=== PATIENT | male | born 1945 | race Caucasian/White ===

== ENCOUNTER 2016-06-25 13:48 | Inpatient (IN) | payer BC, MEDICARE ==
[~2016-06-25] VITALS: Ht 182.9 cm; Wt 110.4 kg
[2016-06-25] MEDS ORDERED: SODIUM CHLORIDE 0.9% 250 ML IV ONE (14:17)
[2016-06-25] MEDS ORDERED: SODIUM CHLORIDE 0.9% 1,000 ML IV STA (14:17)
[2016-06-25] MEDS ORDERED: SODIUM CHLORIDE 0.9% 1,000 ML IV ONE ×2 (14:17)
[2016-06-25] MEDS ORDERED: FURO40TA4 PO (14:27)
[2016-06-25] MEDS ORDERED: METO25TA62 PO (14:27)
[2016-06-25] MEDS ORDERED: ASPI-498 OR (14:27)
[2016-06-25] MEDS ORDERED: TOFA5TAB PO (14:27)
[2016-06-25] MEDS ORDERED: APIX5TAB PO (14:27)
[2016-06-25] MEDS ORDERED: VENL150C PO (14:27)
[2016-06-25] MEDS ORDERED: PRE5T PO (14:27)
[2016-06-25] MEDS ORDERED: MAGN400T21 PO (14:27)
[2016-06-25] MEDS ORDERED: AMI200T PO (14:27)
[2016-06-25] MEDS ORDERED: LOSA25TA9 PO (14:27)
[2016-06-25] MEDS ORDERED: ATOR1TAB PO (14:27)
[2016-06-25] MEDS ORDERED: ACETAMINOPHEN 325 MG TAB PO PRN (14:30)
[2016-06-25 14:45] LABS: DEFINITIVE VIEW TRANSMISSION; Hematocrit 29.8 % (41.0-53.0); Hemoglobin 10.1 g/dL (13.5-17.5); Mean Corpuscular Hemoglobin 31.5 pg (28.0-32.0); Mean Corpuscular Hgb Conc. 33.8 g/dL (32.0-36.0); Mean Corpuscular Volume 93.1 fL (80.0-100.0); Mean Platelet Volume 6.7 fL (7.4-10.4); Platelet Count (auto) 391 10^3/uL (140-450); Red Cell Distribution Width 19.8 % (11.6-16.0); SUSPECT VIEW TRANSMISSION; White Blood Cell 12.8 10^3/uL (4.4-10.8)
[2016-06-25 14:48] LABS: Metamyelocytes % 0; Myelocytes % 0; Promyelocytes % 0; Reactive Lymphocytes 0
[2016-06-25] MEDS ORDERED: cefTRIAXone 1GM/50ML D5W 50 ML IV SCH (15:00)
[2016-06-25 15:17] LABS: Partial Thromboplastin Time 29.7 sec (22.64-33.71)
[2016-06-25 15:23] LABS: Lactic Acid w/Reflex 2.1 mmol/L (0.4-2.0)
[2016-06-25 15:25] LABS: INR 1.19 (0.9-1.15); Prothrombin Time 12.9 sec (9.37-12.3)
[2016-06-25 15:34] LABS: BUN/Creatinine Ratio 14.1; Potassium 3.9 mmol/L (3.5-5.1)
[2016-06-25 15:35] LABS: Albumin 3.4 g/dL (3.4-5.0); Bilirubin, Total 1.5 mg/dL (0.2-1.0); Calcium 8.6 mg/dL (8.5-10.1); Magnesium 2.1 mg/dL (1.6-2.6); Total Protein 8.2 g/dL (6.4-8.2)
[2016-06-25 15:36] LABS: REFLEX LACTIC ACID YES OR NO YES
[2016-06-25] MEDS ORDERED: AZITHROMYCIN 500MG/D5W 250ML 250 ML IV ONE (15:45)
[2016-06-25 15:59] LABS: Anisocytosis Slight; Ovalocytes FEW; Platelet Estimate Adequate
[2016-06-25] MEDS ORDERED: metroNIDAZOLE 500MG/100ML 100 ML IV ONE (16:00)
[2016-06-25] MEDS ORDERED: FUROSEMIDE 40 MG/4 ML VIAL IV ONE (16:15)
[2016-06-25] MEDS ORDERED: ENOXAPARIN SOD 100 MG/1 ML SYRINGE SC ONE (16:15)
[2016-06-25 16:24] LABS: Fibrinogen 546.1 mg/dL (177-375)
[2016-06-25] MEDS ORDERED: ONDANSETRON HCL 4 MG/2 ML VIAL IV PRN (16:45)
[2016-06-25] MEDS ORDERED: NITROGLYCERIN 0.4 MG SL TAB SL PRN (16:45)
[2016-06-25] MEDS ORDERED: HYDROcodone-ACET 5/325MG TAB PO PRN (16:45)
[2016-06-25] MEDS ORDERED: MORPHINE SULF INJ 2 MG/ML SYRINGE 1ML IV PRN ×2 (16:45)
[2016-06-25 16:49] LABS: B-Type Natriuretic Peptide 3201.63 pg/mL (0-100); Temperature: 24.3 C (20.0-25.0)
[2016-06-25] MEDS ORDERED: ACETAMINOPHEN 500 MG TAB PO PRN (17:00)
[2016-06-25] MEDS ORDERED: MAGN400T23 PO (18:55)
[2016-06-25] MEDS ORDERED: SULF500T37 PO (18:55)
[2016-06-25 20:00] VITALS: BP 101/60
[2016-06-25 20:02] LABS: Urine Bilirubin Negative (Negative); Urine Blood TRACE /uL (Negative); Urine Color Yellow (Yellow); Urine Glucose Normal (Normal); Urine Ketone Negative (Negative); Urine Nitrite Negative (Negative); Urine RBC 2 /hpf (0 - 3); Urine Urobilinogen Normal (Negative); Urine pH 5.5 (5.0-8.0)
[2016-06-25] MEDS: SULFASALAZINE 500 MG TAB PO SCH (21:59)
[2016-06-25] MEDS: CLINDAMYCIN 600MG IV 50 ML IV SCH (21:59)
[2016-06-25 22:00] VITALS: BP 102/39
[2016-06-25] MEDS ORDERED: metroNIDAZOLE 500MG/100ML 100 ML IV SCH (22:00)
[2016-06-25] MEDS: APIXABAN 5 MG TAB PO SCH (22:00)
[2016-06-26 05:00] VITALS: BP 109/64
[2016-06-26] MEDS: CLINDAMYCIN 600MG IV 50 ML IV SCH (05:57)
[2016-06-26 06:56] LABS: Basophils # (auto) 0 uL; DEFINITIVE VIEW TRANSMISSION; Eosinophils # (auto) 0 uL; Eosinophils % (auto) 0.1 % (0.0-7.0); Hemoglobin 9.6 g/dL (13.5-17.5); Lymphocytes # (auto) 0.3 uL; Mean Corpuscular Hemoglobin 31.3 pg (28.0-32.0); Mean Corpuscular Hgb Conc. 33.3 g/dL (32.0-36.0); Mean Corpuscular Volume 93.9 fL (80.0-100.0); Monocytes # (auto) 0.6 uL; Monocytes % (auto) 4.8 % (0.0-12.0); Neutrophils # (auto) 10.8 uL; Neutrophils % (auto) 92.1 % (37.0-80.0); Platelet Count (auto) 308 10^3/uL (140-450); Red Cell Distribution Width 19.1 % (11.6-16.0); White Blood Cell 11.7 10^3/uL (4.4-10.8)
[2016-06-26] MEDS ORDERED: VANCOMYCIN PER PHARMACY 0 MG IV SCH (07:00)
[2016-06-26 07:21] LABS: Potassium 3.8 mmol/L (3.5-5.1)
[2016-06-26 07:27] LABS: Albumin 2.9 g/dL (3.4-5.0); Calcium 8.2 mg/dL (8.5-10.1)
[2016-06-26 07:29] LABS: Bilirubin, Total 1.1 mg/dL (0.2-1.0); Total Protein 7.3 g/dL (6.4-8.2)
[2016-06-26 08:00] VITALS: BP 107/65
[2016-06-26] MEDS ORDERED: cefTRIAXone 1GM/50ML D5W 50 ML IV SCH (09:00)
[2016-06-26] MEDS: VANCOMYCIN 1GM/250ML D5W 250 ML IV SCH ×2 (09:43→17:19)
[2016-06-26] MEDS: APIXABAN 5 MG TAB PO SCH (09:43)
[2016-06-26] MEDS: SULFASALAZINE 500 MG TAB PO SCH (09:43)
[2016-06-26] MEDS ORDERED: AMIODARONE HCL 200 MG TAB PO SCH (10:00)
[2016-06-26] MEDS ORDERED: VANCOMYCIN 1,500 MG in D5W 5% 250 ML IV SCH (10:00)
[2016-06-26] MEDS ORDERED: AZITHROMYCIN 500MG/D5W 250ML 250 ML IV SCH (12:00)
[2016-06-26 12:50] VITALS: BP 95/48
[2016-06-26 13:00] VITALS: BP 98/45
[2016-06-26] MEDS ORDERED: ONDANSETRON HCL 4 MG/2 ML VIAL IV PRN (13:00)
[2016-06-26 17:00] VITALS: BP 98/62
[2016-06-26] MEDS ORDERED: ALBUTEROL SULF 2.5 MG/0.5ML(0.5%) NEB SOLN NEB PRN (20:15)
[2016-06-26] MEDS ORDERED: IPRATROPIUM BROM 0.5 MG/2.5ML INH SOL NEB PRN (20:15)
== END 2016-06-26 21:55 | disposition short-term general hospital (02) | DRG 871 ==
LOC: EDUNIT# 13:48 → EDBD 13:48 → ER 13:51 → TELE 13:52 → TELE-WESTW 18:20
PROVIDERS: ADMIT Internal Medicine; ATTEND Family Medicine
PROC: 5A09357 Assistance with Respiratory Ventilation, Less than 24 Consecutive Hours, Continuous Positive Airway Pressure (ICD-10-PCS; principal; 2016-06-25)
DX: A41.01 Sepsis due to Methicillin susceptible Staphylococcus aureus (principal); J18.9 Pneumonia, unspecified organism; I13.0 Hypertensive heart and chronic kidney disease with heart failure and stage 1 through stage 4 chronic kidney disease, or unspecified chronic kidney disease; J44.0 Chronic obstructive pulmonary disease with (acute) lower respiratory infection; L02.211 Cutaneous abscess of abdominal wall; I50.22 Chronic systolic (congestive) heart failure; E78.5 Hyperlipidemia, unspecified; I48.91 Unspecified atrial fibrillation; M06.9 Rheumatoid arthritis, unspecified; N18.3 Chronic kidney disease, stage 3 (moderate); Z95.810 Presence of automatic (implantable) cardiac defibrillator; Z79.01 Long term (current) use of anticoagulants; Z79.899 Other long term (current) drug therapy; Z82.5 Family history of asthma and other chronic lower respiratory diseases; Z80.3 Family history of malignant neoplasm of breast; Z80.42 Family history of malignant neoplasm of prostate; Z80.8 Family history of malignant neoplasm of other organs or systems; Z81.8 Family history of other mental and behavioral disorders; Z82.0 Family history of epilepsy and other diseases of the nervous system; Z82.3 Family history of stroke; Z82.49 Family history of ischemic heart disease and other diseases of the circulatory system; Z83.3 Family history of diabetes mellitus; Z82.62 Family history of osteoporosis; Z82.61 Family history of arthritis
CPT/HCPCS: 36415; 36600; 71010; 74176; 80053; 81001; 82553; 82805; 83605; 83735; 83880; 84484; 85007; 85025; 85027; 85379; 85384; 85610; 85730; 87040; 87077; 87086; 87186; 93005; 93306; 94660; 96361; 96365; 96367; 96372; 96375; J0696; J2405; J3490; J7060

== ENCOUNTER 2022-10-19 19:46 | Inpatient (IN) | payer BC, MEDICARE, OTHER ==
[~2022-10-19] VITALS: Ht 177.8 cm; Wt 73.4 kg
[~2022-10-19 19:46] MED LIST: AMIO200T13 PO; APIX5TAB PO; ASPI-498 OR; ATOR-47 PO; FURO40TA4 PO; MAGN400T23 PO; METO25TA93 PO; PRE5T PO; SULF500T37 PO; TOFA5TAB PO; VENL150C3 PO
[2022-10-19 20:17] LABS: Basophils # (auto) 0.1 10 ^3/uL (0-0.2); Basophils % (auto) 1.3 % (0.0-2.0); Eosinophils # (auto) 0.1 10 ^3/uL (0-0.8); Eosinophils % (auto) 1.2 % (0.0-7.0); Hematocrit 38.9 % (41.0-53.0); Hemoglobin 13.1 g/dL (13.5-17.5); Lymphocytes # (auto) 1.6 10 ^3/uL (0.4-5.4); Lymphocytes % (auto) 15.2 % (10.0-50.0); Mean Corpuscular Hemoglobin 30.5 pg (28.0-32.0); Mean Corpuscular Hgb Conc. 33.8 g/dL (32.0-36.0); Mean Corpuscular Volume 90.4 fL (80.0-100.0); Monocytes # (auto) 1.2 10 ^3/uL (0-1.3); Monocytes % (auto) 11.5 % (0.0-12.0); Neutrophils # (auto) 7.3 10 ^3/uL (1.6-8.6); Neutrophils % (auto) 70.8 % (37.0-80.0); Nucleated Red Blood Cells % 0.1 %; Red Cell Distribution Width 16.2 % (11.8-14.3); White Blood Cell 10.2 10^3/uL (4.4-10.8)
[2022-10-19] MEDS ORDERED: fentaNYL CITRATE 100 MCG/2 ML VL IV ONE (20:30)
[2022-10-19] MEDS ORDERED: ONDANSETRON HCL 4 MG/2 ML VIAL IV ONE (20:30)
[2022-10-19 20:32] LABS: INR 1.16 (0.9-1.15); Partial Thromboplastin Time 28.7 SEC (24.5-34.5); Prothrombin Time 12.1 sec (9.3-11.8)
[2022-10-19 20:40] VITALS: O2SAT 94
[2022-10-19 20:43] LABS: Alanine Aminotransferase 64 U/L (7-40); Albumin 3.7 g/dL (3.2-4.8); Alkaline Phosphatase 69 U/L (46-116); Anion Gap 9.3 (5-15); Aspartate Aminotransferase 52 U/L (13-40); BUN/Creatinine Ratio 21.8 (10.0-20.0); Blood Urea Nitrogen 22 mg/dL (9-23); Calcium 9.2 mg/dL (8.5-10.1); Carbon Dioxide 23.7 mmol/L (20-30); Chloride 102 mmol/L (98-107); Glucose 126 mg/dL (74-106); Magnesium 1.7 mg/dL (1.6-2.6); Potassium 4.2 mmol/L (3.5-5.1); Sodium 135 mmol/L (136-145)
[2022-10-19 20:44] LABS: Bilirubin, Total 1.4 mg/dL (0.2-1.0); Total Protein 7.1 g/dL (5.7-8.2)
[2022-10-19] MEDS ORDERED: SODIUM CHLORIDE 0.9% 1,000 ML IV ONE (20:45)
[2022-10-19] MEDS ORDERED: IPRATROPIUM BROM 0.5 MG/2.5ML INH SOL NEB ONE (21:45)
[2022-10-19] MEDS ORDERED: DexAMETHasone SOD PHOS 10MG/1ML VIAL INJ IV ONE (21:45)
[2022-10-19] MEDS ORDERED: LACTATED RINGER'S 1,000 ML IV ONE (21:45)
[2022-10-19] MEDS ORDERED: AZITHROMYCIN 500MG/ 250ML 250 ML IV ONE (21:45)
[2022-10-19] MEDS ORDERED: ALBUTEROL SULF 2.5 MG/0.5ML(0.5%) NEB SOLN NEB ONE (21:45)
[2022-10-19] MEDS ORDERED: IBUPROFEN 600 MG TAB PO PRN (22:30)
[2022-10-19] MEDS ORDERED: IPRATROPIUM BROM 0.5 MG/2.5ML INH SOL NEB PRN (22:30)
[2022-10-19] MEDS ORDERED: ALBUTEROL SULF 2.5 MG/0.5ML(0.5%) NEB SOLN NEB PRN (22:30)
[2022-10-19] MEDS ORDERED: MORPHINE SULFATE INJ 2 MG/ml SYRG IV PRN (23:30)
[2022-10-19] MEDS ORDERED: NITROGLYCERIN 0.4 MG SL TAB SL PRN (23:30)
[2022-10-20] VITALS (8 sets, daily range): BP systolic 93–116; BP diastolic 53–70; PULSE 41–76; RESP 18–20; TEMP 98.1–98.9; O2SAT 91–99
[2022-10-20] MEDS: ONDANSETRON HCL 4 MG/2 ML VIAL IV PRN (01:00)
[2022-10-20 03:17] LABS: COVID19 ANTIGEN SOFIA FIA NEGATIVE (NEGATIVE)
[2022-10-20 03:18] LABS: Rapid Influenza A Negative (Negative); Rapid Influenza B Negative (Negative)
[2022-10-20 06:05] LABS: Basophils # (auto) 0 10 ^3/uL (0-0.2); Basophils % (auto) 0.1 % (0.0-2.0); Eosinophils # (auto) 0 10 ^3/uL (0-0.8); Hematocrit 36.3 % (41.0-53.0); Hemoglobin 12.4 g/dL (13.5-17.5); Lymphocytes # (auto) 0.6 10 ^3/uL (0.4-5.4); Lymphocytes % (auto) 5.7 % (10.0-50.0); Mean Corpuscular Hemoglobin 30.5 pg (28.0-32.0); Mean Corpuscular Hgb Conc. 34.2 g/dL (32.0-36.0); Mean Corpuscular Volume 89.1 fL (80.0-100.0); Monocytes # (auto) 0.8 10 ^3/uL (0-1.3); Monocytes % (auto) 7.4 % (0.0-12.0); Neutrophils # (auto) 9.9 10 ^3/uL (1.6-8.6); Neutrophils % (auto) 86.8 % (37.0-80.0); Red Blood Cells 4.07 10^6/uL (4.5-5.90); Red Cell Distribution Width 16.2 % (11.8-14.3); White Blood Cell 11.4 10^3/uL (4.4-10.8)
[2022-10-20] MEDS: SODIUM CHLOR 0.9% PF (SALINE LOCK) 10ML VIAL/SYR IV SCH ×3 (06:07→22:00)
[2022-10-20 06:19] LABS: Alanine Aminotransferase 44 U/L (7-40); Alkaline Phosphatase 59 U/L (46-116); BUN/Creatinine Ratio 15.5 (10.0-20.0); Blood Urea Nitrogen 15 mg/dL (9-23); Calcium 9.2 mg/dL (8.7-10.4); Chloride 103 mmol/L (98-107); Glucose 167 mg/dL (74-106); Potassium 4.3 mmol/L (3.5-5.1); Sodium 134 mmol/L (136-145)
[2022-10-20 06:20] LABS: Albumin 3.5 g/dL (3.2-4.8); Aspartate Aminotransferase 31 U/L (13-40); Bilirubin, Total 1.3 mg/dL (0.2-1.0)
[2022-10-20 08:38] LABS: Triglycerides 50 mg/dL (< 150)
[2022-10-20 08:39] LABS: LDL Cholesterol 83 mg/dL (< 100)
[2022-10-20 08:40] LABS: Cholesterol 133 mg/dL (< 200); HDL Cholesterol 39 mg/dL (40-59)
[2022-10-20] MEDS: AZITHROMYCIN 500MG/ 250ML 250 ML IV SCH (08:46)
[2022-10-20] MEDS: ASPirin 81 mg TAB PO SCH (08:47)
[2022-10-20] MEDS: CARVEDILOL 3.125 MG TAB PO SCH ×2 (08:47→21:42)
[2022-10-20 09:09] LABS: Amphetamine Screen, Urine Neg (NEGATIVE); Barbiturate Scree,Urine Neg (NEGATIVE); Benzodiazephine Screen, Urine Neg (NEGATIVE); Cannabinoid Screen, Urine Pos (NEGATIVE); Cocaine Screen, Urine Neg (NEGATIVE); Opiate Scree,Urine Neg (NEGATIVE); Phencyclidine Screen, Urine Neg (NEGATIVE)
[2022-10-20 09:19] LABS: Urine Bacteria NONE SEEN /hpf (None Seen); Urine Blood Negative /uL (Negative); Urine Clarity Clear (Clear); Urine Color Yellow (Yellow); Urine Protein, UAD TRACE (Negative); Urine Specific Gravity 1.014 (1.001-1.035); Urine Urobilinogen Normal (Negative); Urine WBC 1 /hpf (0 - 3); Urine pH 5.5 (5.0-8.0)
[2022-10-20] MEDS ORDERED: FUROSEMIDE 20 MG/2 ML VIAL IV SCH (10:00)
[2022-10-20] MEDS ORDERED: DexAMETHasone SOD PHOS 10MG/1ML VIAL INJ IV SCH (10:00)
[2022-10-20] MEDS ORDERED: SOTA80TA PO (18:24)
[2022-10-20] MEDS ORDERED: TRAM50TA2 PO (18:26)
[2022-10-20] MEDS: APIXABAN 5 MG TAB PO SCH (21:44)
[2022-10-20] MEDS: ATORVASTATIN 20 MG TAB PO SCH (21:44)
[2022-10-20] MEDS ORDERED: ATORVASTATIN 20 MG TAB PO SCH (22:00)
[2022-10-21] VITALS (9 sets, daily range): BP systolic 95–132; BP diastolic 55–69; PULSE 61–147; RESP 17–20; TEMP 97.5–98.4; O2SAT 91–97
[2022-10-21] MEDS: FUROSEMIDE 40 MG/4 ML VIAL IV SCH ×2 (06:00→18:00)
[2022-10-21] MEDS: SODIUM CHLOR 0.9% PF (SALINE LOCK) 10ML VIAL/SYR IV SCH ×3 (06:12→20:27)
[2022-10-21 06:45] LABS: Basophils # (auto) 0 10 ^3/uL (0-0.2); Basophils % (auto) 0.1 % (0.0-2.0); Eosinophils # (auto) 0 10 ^3/uL (0-0.8); Hematocrit 33.5 % (41.0-53.0); Hemoglobin 11.5 g/dL (13.5-17.5); Lymphocytes # (auto) 1.1 10 ^3/uL (0.4-5.4); Mean Corpuscular Hemoglobin 30.3 pg (28.0-32.0); Mean Corpuscular Hgb Conc. 34.3 g/dL (32.0-36.0); Mean Corpuscular Volume 88.6 fL (80.0-100.0); Monocytes # (auto) 1.1 10 ^3/uL (0-1.3); Neutrophils % (auto) 83.9 % (37.0-80.0); Red Blood Cells 3.78 10^6/uL (4.5-5.90); Red Cell Distribution Width 15.9 % (11.8-14.3); White Blood Cell 13.2 10^3/uL (4.4-10.8)
[2022-10-21 06:57] LABS: Chloride 105 mmol/L (98-107); Potassium 3.9 mmol/L (3.5-5.1); Sodium 136 mmol/L (136-145)
[2022-10-21 06:58] LABS: Anion Gap 5.1 (5-15); Calcium 9.3 mg/dL (8.7-10.4); Carbon Dioxide 25.9 mmol/L (20-30)
[2022-10-21 07:03] LABS: BUN/Creatinine Ratio 23.7 (10.0-20.0); Blood Urea Nitrogen 22 mg/dL (9-23); Glucose 135 mg/dL (74-106)
[2022-10-21] MEDS: AMIODARONE HCL 200 MG TAB PO SCH (09:09)
[2022-10-21] MEDS: APIXABAN 5 MG TAB PO SCH ×2 (09:09→20:27)
[2022-10-21] MEDS: AZITHROMYCIN 500MG/ 250ML 250 ML IV SCH (09:10)
[2022-10-21] MEDS: ASPirin 81 mg TAB PO SCH (09:10)
[2022-10-21] MEDS: cefTRIAXone 1GM/50ML D5W 50 ML IV SCH (09:10)
[2022-10-21] MEDS: CARVEDILOL 3.125 MG TAB PO SCH ×2 (10:00→20:27)
[2022-10-21] MEDS ORDERED: AZITTAB PO ×2 (13:11)
[2022-10-21] MEDS ORDERED: METH4PAK PO (13:11)
[2022-10-21] MEDS ORDERED: METOPROLOL TARTRATE 1MG/1ML-5ML VIAL IV ONE (14:00)
[2022-10-21] MEDS ORDERED: DIGOXIN (250MCG/ML) 2 ML AMPULE IV ONE ×3 (14:30→20:45)
[2022-10-21] MEDS: MAGNESIUM SULFATE 1GM/100ML 100 ML IV SCH ×2 (14:31→16:22)
[2022-10-21] MEDS: ATORVASTATIN 20 MG TAB PO SCH (20:28)
[2022-10-21] MEDS: HYDROcodone-ACET 5/325MG TAB PO PRN (23:59)
[2022-10-22] VITALS (7 sets, daily range): BP systolic 91–118; BP diastolic 51–75; PULSE 58–73; RESP 18–20; TEMP 97.8–98.6; O2SAT 92–96
[2022-10-22] MEDS: SODIUM CHLOR 0.9% PF (SALINE LOCK) 10ML VIAL/SYR IV SCH ×3 (05:24→21:05)
[2022-10-22] MEDS: FUROSEMIDE 40 MG/4 ML VIAL IV SCH (05:24)
[2022-10-22 08:05] LABS: Chloride 105 mmol/L (98-107); Sodium 139 mmol/L (136-145)
[2022-10-22 08:06] LABS: Anion Gap 5.6 (5-15); Calcium 9.3 mg/dL (8.5-10.1); Carbon Dioxide 28.4 mmol/L (20-30)
[2022-10-22 08:11] LABS: BUN/Creatinine Ratio 18.6 (10.0-20.0); Blood Urea Nitrogen 22 mg/dL (9-23); Glucose 88 mg/dL (74-106)
[2022-10-22 08:30] LABS: Basophils # (auto) 0 10 ^3/uL (0-0.2); Basophils % (auto) 0.3 % (0.0-2.0); Eosinophils # (auto) 0.2 10 ^3/uL (0-0.8); Eosinophils % (auto) 2.1 % (0.0-7.0); Hematocrit 37.2 % (41.0-53.0); Hemoglobin 12.5 g/dL (13.5-17.5); Lymphocytes # (auto) 1.9 10 ^3/uL (0.4-5.4); Lymphocytes % (auto) 23.6 % (10.0-50.0); Mean Corpuscular Hemoglobin 30.3 pg (28.0-32.0); Mean Corpuscular Hgb Conc. 33.5 g/dL (32.0-36.0); Mean Corpuscular Volume 90.3 fL (80.0-100.0); Monocytes # (auto) 0.7 10 ^3/uL (0-1.3); Monocytes % (auto) 8.7 % (0.0-12.0); Neutrophils # (auto) 5.2 10 ^3/uL (1.6-8.6); Neutrophils % (auto) 65.3 % (37.0-80.0); Nucleated Red Blood Cells % 0.2 %; Red Blood Cells 4.12 10^6/uL (4.5-5.90); Red Cell Distribution Width 16.2 % (11.8-14.3)
[2022-10-22 09:53] LABS: Alanine Aminotransferase 173 U/L (7-40); Albumin 3.4 g/dL (3.2-4.8); Alkaline Phosphatase 58 U/L (46-116); Anion Gap 4.7 (5-15); Aspartate Aminotransferase 145 U/L (13-40); Bilirubin, Total 0.5 mg/dL (0.2-1.0); Blood Urea Nitrogen 22 mg/dL (9-23); Calcium 9.3 mg/dL (8.5-10.1); Carbon Dioxide 27.3 mmol/L (20-30); Chloride 105 mmol/L (98-107); Glucose 86 mg/dL (74-106); Magnesium 2.1 mg/dL (1.6-2.6); Sodium 137 mmol/L (136-145); Total Protein 6.7 g/dL (5.7-8.2)
[2022-10-22] MEDS ORDERED: DIGOXIN 0.125 MG TAB PO SCH (10:00)
[2022-10-22] MEDS: APIXABAN 5 MG TAB PO SCH ×2 (10:33→21:04)
[2022-10-22] MEDS: EMPAGLIFLOZIN 10 MG TAB PO SCH (10:33)
[2022-10-22] MEDS: cefTRIAXone 1GM/50ML D5W 50 ML IV SCH (10:33)
[2022-10-22] MEDS: AMIODARONE HCL 200 MG TAB PO SCH (10:33)
[2022-10-22] MEDS: ASPirin 81 mg TAB PO SCH (10:33)
[2022-10-22] MEDS: AZITHROMYCIN 500MG/ 250ML 250 ML IV SCH (12:28)
[2022-10-22] MEDS ORDERED: CHOL20007 PO (17:47)
[2022-10-22] MEDS: FUROSEMIDE 20 MG TAB PO SCH (18:31)
[2022-10-22] MEDS: SOTALOL HCL 80 MG TAB PO SCH (21:04)
[2022-10-22] MEDS: ATORVASTATIN 20 MG TAB PO SCH (21:04)
[2022-10-23 05:00] VITALS: BP 94/64; PULSE 64; RESP 18; TEMP 98.4; O2SAT 99
[2022-10-23] MEDS: EMPAGLIFLOZIN 10 MG TAB PO SCH (05:48)
[2022-10-23] MEDS: FUROSEMIDE 20 MG TAB PO SCH ×2 (05:48→18:00)
[2022-10-23] MEDS: SODIUM CHLOR 0.9% PF (SALINE LOCK) 10ML VIAL/SYR IV SCH ×3 (05:49→20:50)
[2022-10-23 05:56] LABS: Basophils # (auto) 0 10 ^3/uL (0-0.2); Basophils % (auto) 0.7 % (0.0-2.0); Eosinophils # (auto) 0.4 10 ^3/uL (0-0.8); Eosinophils % (auto) 5.4 % (0.0-7.0); Hematocrit 41.1 % (41.0-53.0); Hemoglobin 13.8 g/dL (13.5-17.5); Lymphocytes # (auto) 1.9 10 ^3/uL (0.4-5.4); Lymphocytes % (auto) 25.8 % (10.0-50.0); Mean Corpuscular Hgb Conc. 33.5 g/dL (32.0-36.0); Mean Corpuscular Volume 89.6 fL (80.0-100.0); Monocytes # (auto) 0.7 10 ^3/uL (0-1.3); Monocytes % (auto) 9.9 % (0.0-12.0); Neutrophils # (auto) 4.3 10 ^3/uL (1.6-8.6); Neutrophils % (auto) 58.2 % (37.0-80.0); Nucleated Red Blood Cells % 0.1 %; Red Blood Cells 4.58 10^6/uL (4.5-5.90); Red Cell Distribution Width 16.3 % (11.8-14.3); White Blood Cell 7.4 10^3/uL (4.4-10.8)
[2022-10-23 06:09] LABS: Chloride 102 mmol/L (98-107); Potassium 3.9 mmol/L (3.5-5.1); Sodium 136 mmol/L (136-145)
[2022-10-23 06:10] LABS: Calcium 9.6 mg/dL (8.7-10.4)
[2022-10-23 06:15] LABS: Glucose 82 mg/dL (74-106)
[2022-10-23 07:43] LABS: Blood Urea Nitrogen 22 mg/dL (9-23)
[2022-10-23] MEDS: cefTRIAXone 1GM/50ML D5W 50 ML IV SCH (07:53)
[2022-10-23 08:00] VITALS: BP 110/69; PULSE 68; PULSE 69; PULSE 71; RESP 16; RESP 19; TEMP 98.6; O2SAT 93; O2SAT 97
[2022-10-23] MEDS: HYDROcodone-ACET 5/325MG TAB PO PRN ×2 (08:41→20:50)
[2022-10-23] MEDS: AZITHROMYCIN 250 MG TAB PO SCH (08:55)
[2022-10-23] MEDS: ASPirin 81 mg TAB PO SCH (08:55)
[2022-10-23] MEDS: SOTALOL HCL 80 MG TAB PO SCH ×2 (08:55→20:49)
[2022-10-23] MEDS: APIXABAN 5 MG TAB PO SCH ×2 (08:55→20:49)
[2022-10-23 12:00] VITALS: BP 84/48; PULSE 55; RESP 20; TEMP 98.8; O2SAT 98
[2022-10-23 16:00] VITALS: BP 82/55; PULSE 72; RESP 20; TEMP 98.6; O2SAT 96
[2022-10-23 20:00] VITALS: BP 95/58; PULSE 72; PULSE 74; RESP 18; O2SAT 100
[2022-10-23] MEDS: ATORVASTATIN 20 MG TAB PO SCH (20:50)
[2022-10-23 22:00] VITALS: BP 95/58; PULSE 72; RESP 18; TEMP 97.6; O2SAT 100
[2022-10-24] VITALS (7 sets, daily range): BP systolic 78–103; BP diastolic 45–65; PULSE 53–86; RESP 16–22; TEMP 97.7–98.3; O2SAT 90–95
[2022-10-24] MEDS: FUROSEMIDE 20 MG TAB PO SCH ×2 (05:33→18:00)
[2022-10-24] MEDS: ONDANSETRON HCL 4 MG/2 ML VIAL IV PRN (05:33)
[2022-10-24] MEDS: EMPAGLIFLOZIN 10 MG TAB PO SCH (05:34)
[2022-10-24] MEDS: SODIUM CHLOR 0.9% PF (SALINE LOCK) 10ML VIAL/SYR IV SCH ×3 (05:34→22:20)
[2022-10-24 05:51] LABS: Basophils # (auto) 0.1 10 ^3/uL (0-0.2); Lymphocytes # (auto) 1.8 10 ^3/uL (0.4-5.4); Monocytes # (auto) 0.9 10 ^3/uL (0-1.3)
[2022-10-24 05:53] LABS: Basophils % (auto) 0.5 % (0.0-2.0); Chloride 100 mmol/L (98-107); Eosinophils # (auto) 0.4 10 ^3/uL (0-0.8); Eosinophils % (auto) 3.5 % (0.0-7.0); Hematocrit 40.9 % (41.0-53.0); Hemoglobin 14.3 g/dL (13.5-17.5); Lymphocytes % (auto) 17.6 % (10.0-50.0); Mean Corpuscular Hemoglobin 31.1 pg (28.0-32.0); Mean Corpuscular Hgb Conc. 35.1 g/dL (32.0-36.0); Mean Corpuscular Volume 88.7 fL (80.0-100.0); Monocytes % (auto) 8.5 % (0.0-12.0); Neutrophils # (auto) 7.3 10 ^3/uL (1.6-8.6); Neutrophils % (auto) 69.9 % (37.0-80.0); Potassium 3.9 mmol/L (3.5-5.1); Red Blood Cells 4.61 10^6/uL (4.5-5.90); Red Cell Distribution Width 16.3 % (11.8-14.3); Sodium 134 mmol/L (136-145); White Blood Cell 10.4 10^3/uL (4.4-10.8)
[2022-10-24 05:54] LABS: Anion Gap 7.8 (5-15); Calcium 9.4 mg/dL (8.7-10.4); Carbon Dioxide 26.2 mmol/L (20-30)
[2022-10-24 05:59] LABS: BUN/Creatinine Ratio 20.7 (10.0-20.0); Blood Urea Nitrogen 23 mg/dL (9-23); Glucose 106 mg/dL (74-106)
[2022-10-24] MEDS: cefTRIAXone 1GM/50ML D5W 50 ML IV SCH (08:43)
[2022-10-24] MEDS: ASPirin 81 mg TAB PO SCH (08:43)
[2022-10-24] MEDS: AZITHROMYCIN 250 MG TAB PO SCH (08:44)
[2022-10-24] MEDS: HYDROcodone-ACET 5/325MG TAB PO PRN ×3 (08:44→22:22)
[2022-10-24] MEDS: DOCUSATE SOD 100 MG CAP PO PRN (08:44)
[2022-10-24] MEDS: APIXABAN 5 MG TAB PO SCH ×2 (08:44→22:20)
[2022-10-24] MEDS: SOTALOL HCL 80 MG TAB PO SCH ×2 (08:46→22:23)
[2022-10-24] MEDS ORDERED: ACETAMINOPHEN 325 MG TAB PO PRN (09:45)
[2022-10-24] MEDS: PANTOPRAZOLE 40 MG TAB PO SCH (12:55)
[2022-10-24] MEDS ORDERED: ASPirin 81 mg TAB PO ONE (17:15)
[2022-10-24] MEDS ORDERED: SACUBITRIL-VALSARTAN 24mg/26mg TAB PO SCH (19:15)
[2022-10-24] MEDS: ATORVASTATIN 20 MG TAB PO SCH (22:20)
[2022-10-25] VITALS (7 sets, daily range): BP systolic 89–109; BP diastolic 49–53; PULSE 63–76; RESP 17–22; TEMP 97.7–98; O2SAT 94–100
[2022-10-25] MEDS: FUROSEMIDE 20 MG TAB PO SCH (06:00)
[2022-10-25] MEDS: EMPAGLIFLOZIN 10 MG TAB PO SCH (06:40)
[2022-10-25] MEDS: SODIUM CHLOR 0.9% PF (SALINE LOCK) 10ML VIAL/SYR IV SCH ×3 (06:41→22:24)
[2022-10-25 06:51] LABS: Anion Gap 10.1 (5-15); Calcium 9.4 mg/dL (8.7-10.4); Carbon Dioxide 23.9 mmol/L (20-30); Chloride 97 mmol/L (98-107); Potassium 4.1 mmol/L (3.5-5.1); Sodium 131 mmol/L (136-145)
[2022-10-25 06:54] LABS: Lactic Acid w/Reflex 2.3 mmol/L (0.4-2.0)
[2022-10-25 06:57] LABS: Glucose 110 mg/dL (74-106)
[2022-10-25 06:58] LABS: BUN/Creatinine Ratio 19.6 (10.0-20.0); Magnesium 2.1 mg/dL (1.6-2.6)
[2022-10-25 07:03] LABS: Blood Urea Nitrogen 33 mg/dL (9-23)
[2022-10-25] MEDS ORDERED: LACTULOSE 20Gm/30ML SOLN PO ONE (09:30)
[2022-10-25] MEDS: PANTOPRAZOLE 40 MG TAB PO SCH (09:35)
[2022-10-25] MEDS: ASPirin 81 mg TAB PO SCH (09:35)
[2022-10-25] MEDS: DOXYCYCLINE 100 MG TAB/CAP PO SCH ×2 (09:35→22:21)
[2022-10-25] MEDS: APIXABAN 5 MG TAB PO SCH ×2 (09:35→22:21)
[2022-10-25] MEDS: SOTALOL HCL 80 MG TAB PO SCH ×2 (09:37→22:23)
[2022-10-25] MEDS: HYDROcodone-ACET 5/325MG TAB PO PRN ×2 (09:39→17:32)
[2022-10-25 12:59] LABS: Hepatitis B Surface Antigen Negative (Negative)
[2022-10-25 13:20] LABS: Hepatitis B Core IgM Positive
[2022-10-25 13:21] LABS: Hepatitis C Antibody Negative (Negative)
[2022-10-25] MEDS ORDERED: DIGOXIN (250MCG/ML) 2 ML AMPULE IV ONE ×3 (14:10→20:10)
[2022-10-25 14:22] LABS: Hepatitis A Ab IgM Negative
[2022-10-25] MEDS: ONDANSETRON HCL 4 MG/2 ML VIAL IV PRN (20:04)
[2022-10-25] MEDS: ATORVASTATIN 20 MG TAB PO SCH (22:00)
[2022-10-26] VITALS (9 sets, daily range): BP systolic 97–116; BP diastolic 55–65; PULSE 60–93; RESP 16–19; TEMP 97.7–98.2; O2SAT 92–99
[2022-10-26] MEDS: EMPAGLIFLOZIN 10 MG TAB PO SCH (06:46)
[2022-10-26 06:50] LABS: Alanine Aminotransferase 69 U/L (7-40); Albumin 3.5 g/dL (3.2-4.8); Alkaline Phosphatase 67 U/L (46-116); Aspartate Aminotransferase 51 U/L (13-40); Blood Urea Nitrogen 36 mg/dL (9-23); Calcium 9.4 mg/dL (8.7-10.4); Chloride 99 mmol/L (98-107); Glucose 96 mg/dL (74-106); Potassium 4.1 mmol/L (3.5-5.1); Sodium 132 mmol/L (136-145)
[2022-10-26 06:51] LABS: Total Protein 6.7 g/dL (5.7-8.2)
[2022-10-26] MEDS: SODIUM CHLOR 0.9% PF (SALINE LOCK) 10ML VIAL/SYR IV SCH ×3 (06:53→22:01)
[2022-10-26 06:59] LABS: Basophils # (auto) 0 10 ^3/uL (0-0.2); Basophils % (auto) 0.3 % (0.0-2.0); Eosinophils # (auto) 0.2 10 ^3/uL (0-0.8); Eosinophils % (auto) 1.2 % (0.0-7.0); Hematocrit 38.9 % (41.0-53.0); Lymphocytes # (auto) 1.3 10 ^3/uL (0.4-5.4); Lymphocytes % (auto) 9.5 % (10.0-50.0); Mean Corpuscular Hemoglobin 29.7 pg (28.0-32.0); Mean Corpuscular Hgb Conc. 33.5 g/dL (32.0-36.0); Mean Corpuscular Volume 88.7 fL (80.0-100.0); Monocytes # (auto) 1.3 10 ^3/uL (0-1.3); Monocytes % (auto) 9.9 % (0.0-12.0); Neutrophils # (auto) 10.6 10 ^3/uL (1.6-8.6); Neutrophils % (auto) 79.1 % (37.0-80.0); Nucleated Red Blood Cells % 0.2 %; Red Blood Cells 4.38 10^6/uL (4.5-5.90); White Blood Cell 13.4 10^3/uL (4.4-10.8)
[2022-10-26 07:27] LABS: Magnesium 2.2 mg/dL (1.6-2.6)
[2022-10-26] MEDS: HYDROcodone-ACET 5/325MG TAB PO PRN ×2 (08:46→22:10)
[2022-10-26 09:15] LABS: Erythrocyte Sedimentation Rate 82 mm/hr (0-20)
[2022-10-26] MEDS ORDERED: DIGOXIN 0.125 MG TAB PO SCH (10:00)
[2022-10-26] MEDS: SOTALOL HCL 80 MG TAB PO SCH ×2 (10:00→22:07)
[2022-10-26] MEDS: PANTOPRAZOLE 40 MG TAB PO SCH (10:19)
[2022-10-26] MEDS: ASPirin 81 mg TAB PO SCH (10:19)
[2022-10-26] MEDS: DOXYCYCLINE 100 MG TAB/CAP PO SCH ×2 (10:19→22:08)
[2022-10-26] MEDS: APIXABAN 5 MG TAB PO SCH ×2 (10:19→22:08)
[2022-10-26] MEDS: ATORVASTATIN 20 MG TAB PO SCH (22:00)
[2022-10-26] MEDS: DOCUSATE SOD 100 MG CAP PO PRN (22:08)
[2022-10-27] VITALS (7 sets, daily range): BP systolic 95–110; BP diastolic 55–64; PULSE 64–73; RESP 17–19; TEMP 97.4–98.6; O2SAT 95–98
[2022-10-27] MEDS: SODIUM CHLOR 0.9% PF (SALINE LOCK) 10ML VIAL/SYR IV SCH ×3 (07:03→22:10)
[2022-10-27] MEDS: HYDROcodone-ACET 5/325MG TAB PO PRN (07:03)
[2022-10-27] MEDS: EMPAGLIFLOZIN 10 MG TAB PO SCH (07:03)
[2022-10-27 07:40] LABS: Basophils # (auto) 0 10 ^3/uL (0-0.2); Basophils % (auto) 0.4 % (0.0-2.0); Eosinophils # (auto) 0.2 10 ^3/uL (0-0.8); Eosinophils % (auto) 2.7 % (0.0-7.0); Hematocrit 39.5 % (41.0-53.0); Hemoglobin 13.4 g/dL (13.5-17.5); Lymphocytes # (auto) 1.3 10 ^3/uL (0.4-5.4); Lymphocytes % (auto) 14.9 % (10.0-50.0); Mean Corpuscular Hemoglobin 30.2 pg (28.0-32.0); Mean Corpuscular Volume 88.9 fL (80.0-100.0); Monocytes # (auto) 1.1 10 ^3/uL (0-1.3); Monocytes % (auto) 12.9 % (0.0-12.0); Neutrophils # (auto) 5.8 10 ^3/uL (1.6-8.6); Neutrophils % (auto) 69.1 % (37.0-80.0); Nucleated Red Blood Cells % 0.1 %; Red Blood Cells 4.45 10^6/uL (4.5-5.90); Red Cell Distribution Width 15.7 % (11.8-14.3); White Blood Cell 8.4 10^3/uL (4.4-10.8)
[2022-10-27 08:27] LABS: Alanine Aminotransferase 113 U/L (7-40); Albumin 3.5 g/dL (3.2-4.8); Alkaline Phosphatase 65 U/L (46-116); Anion Gap 7.2 (5-15); Aspartate Aminotransferase 122 U/L (13-40); BUN/Creatinine Ratio 25.2 (10.0-20.0); Blood Urea Nitrogen 27 mg/dL (9-23); Calcium 9.5 mg/dL (8.5-10.1); Carbon Dioxide 26.8 mmol/L (20-30); Chloride 100 mmol/L (98-107); Glucose 73 mg/dL (74-106); Potassium 4.1 mmol/L (3.5-5.1); Sodium 134 mmol/L (136-145)
[2022-10-27 08:28] LABS: Bilirubin, Total 0.8 mg/dL (0.2-1.0); Total Protein 6.9 g/dL (5.7-8.2)
[2022-10-27 08:31] LABS: % Iron Saturation 12.4 % (20-55)
[2022-10-27] MEDS: ASPirin 81 mg TAB PO SCH (10:58)
[2022-10-27] MEDS: PANTOPRAZOLE 40 MG TAB PO SCH (10:58)
[2022-10-27] MEDS: APIXABAN 5 MG TAB PO SCH ×2 (10:59→22:10)
[2022-10-27] MEDS: DOXYCYCLINE 100 MG TAB/CAP PO SCH (10:59)
[2022-10-27] MEDS: SOTALOL HCL 80 MG TAB PO SCH ×2 (11:00→22:10)
[2022-10-27 12:06] LABS: Anti-Centromere B Antibody <0.2 AI (0.0-0.9); Anti-Jo-1 Antibody <0.2 AI (0.0-0.9); Anti-dsDNA Antibody <1 IU/mL (0-9); Antichromatin Antibody <0.2 AI (0.0-0.9); Antiscleroderma-70 Antibody <0.2 AI (0.0-0.9); RNP Antibody <0.2 AI (0.0-0.9); Sjogren's Anti-SS-A Antibody <0.2 AI (0.0-0.9); Sjogren's Anti-SS-B Antibody <0.2 AI (0.0-0.9); Smith Antibody <0.2 AI (0.0-0.9)
[2022-10-27] MEDS: DOCUSATE SOD 100 MG CAP PO PRN (16:45)
[2022-10-27] MEDS: traMADol HCL 50 MG TAB PO PRN (16:45)
[2022-10-27] MEDS: DIGOXIN 0.125 MG TAB PO SCH (19:23)
[2022-10-27] MEDS: ATORVASTATIN 20 MG TAB PO SCH (22:00)
[2022-10-28] VITALS (7 sets, daily range): BP systolic 98–112; BP diastolic 53–64; PULSE 60–74; RESP 16–18; TEMP 97.3–97.9; O2SAT 93–97
[2022-10-28] MEDS: EMPAGLIFLOZIN 10 MG TAB PO SCH (06:38)
[2022-10-28] MEDS: SODIUM CHLOR 0.9% PF (SALINE LOCK) 10ML VIAL/SYR IV SCH ×3 (06:38→21:03)
[2022-10-28 08:50] LABS: Basophils # (auto) 0 10 ^3/uL (0-0.2); Basophils % (auto) 0.6 % (0.0-2.0); Eosinophils # (auto) 0.2 10 ^3/uL (0-0.8); Eosinophils % (auto) 3.4 % (0.0-7.0); Hematocrit 37.1 % (41.0-53.0); Hemoglobin 12.5 g/dL (13.5-17.5); Mean Corpuscular Hgb Conc. 33.7 g/dL (32.0-36.0); Mean Corpuscular Volume 88.9 fL (80.0-100.0); Monocytes # (auto) 0.9 10 ^3/uL (0-1.3); Monocytes % (auto) 13.5 % (0.0-12.0); Neutrophils # (auto) 4.4 10 ^3/uL (1.6-8.6); Neutrophils % (auto) 66.5 % (37.0-80.0); Nucleated Red Blood Cells % 0.1 %; Red Blood Cells 4.17 10^6/uL (4.5-5.90); White Blood Cell 6.6 10^3/uL (4.4-10.8)
[2022-10-28 09:01] LABS: Alanine Aminotransferase 91 U/L (7-40); Albumin 3.3 g/dL (3.2-4.8); Alkaline Phosphatase 61 U/L (46-116); Anion Gap 7.3 (5-15); Aspartate Aminotransferase 82 U/L (13-40); BUN/Creatinine Ratio 30.9 (10.0-20.0); Bilirubin, Total 0.8 mg/dL (0.2-1.0); Blood Urea Nitrogen 29 mg/dL (9-23); Calcium 9.1 mg/dL (8.5-10.1); Carbon Dioxide 26.7 mmol/L (20-30); Chloride 101 mmol/L (98-107); Glucose 75 mg/dL (74-106); Sodium 135 mmol/L (136-145)
[2022-10-28 09:02] LABS: Total Protein 6.4 g/dL (5.7-8.2)
[2022-10-28] MEDS: PANTOPRAZOLE 40 MG TAB PO SCH (09:19)
[2022-10-28] MEDS: DIGOXIN 0.125 MG TAB PO SCH (09:19)
[2022-10-28] MEDS: APIXABAN 5 MG TAB PO SCH ×2 (09:20→21:02)
[2022-10-28] MEDS: SOTALOL HCL 80 MG TAB PO SCH (09:20)
[2022-10-28] MEDS: ASPirin 81 mg TAB PO SCH (09:20)
[2022-10-28] MEDS ORDERED: VENLAFAXINE HCL 37.5MG TABLET PO SCH (10:00)
[2022-10-28] MEDS ORDERED: EMPA1TAB PO (14:54)
[2022-10-28] MEDS ORDERED: SACU1TAB PO (14:54)
[2022-10-28] MEDS: DOCUSATE SOD 100 MG CAP PO PRN (15:57)
[2022-10-28] MEDS: traMADol HCL 50 MG TAB PO PRN (15:58)
[2022-10-28] MEDS: ATORVASTATIN 20 MG TAB PO SCH (21:03)
[2022-10-28] MEDS ORDERED: SACUBITRIL-VALSARTAN 24mg/26mg TAB PO SCH (22:00)
[2022-10-28] MEDS ORDERED: CARVEDILOL 3.125 MG TAB PO SCH (22:00)
[2022-10-29] MEDS ORDERED: FUROSEMIDE 20 MG TAB PO SCH (10:00)
== END 2022-10-28 23:55 | disposition home or self-care (01) | DRG 291 ==
LOC: EDBD 19:46 → ER 19:46 → TELE 23:18 → TELE-EAST 10-20 15:05
PROVIDERS: ADMIT Internal Medicine Geriatric Medicine; ATTEND Student in an Organized Health Care Education/Training Program
DX: I11.0 Hypertensive heart disease with heart failure (principal); I50.23 Acute on chronic systolic (congestive) heart failure; J84.9 Interstitial pulmonary disease, unspecified; J44.1 Chronic obstructive pulmonary disease with (acute) exacerbation; J44.0 Chronic obstructive pulmonary disease with (acute) lower respiratory infection; I48.20 Chronic atrial fibrillation, unspecified; B19.10 Unspecified viral hepatitis B without hepatic coma; N17.9 Acute kidney failure, unspecified; Z68.1 Body mass index [BMI] 19.9 or less, adult; I95.9 Hypotension, unspecified; E86.0 Dehydration; E78.5 Hyperlipidemia, unspecified; J84.10 Pulmonary fibrosis, unspecified; E66.9 Obesity, unspecified; I25.5 Ischemic cardiomyopathy; K59.00 Constipation, unspecified; E83.42 Hypomagnesemia; G47.33 Obstructive sleep apnea (adult) (pediatric); K80.20 Calculus of gallbladder without cholecystitis without obstruction; M06.9 Rheumatoid arthritis, unspecified; I25.10 Atherosclerotic heart disease of native coronary artery without angina pectoris; I25.2 Old myocardial infarction; R74.01 Elevation of levels of liver transaminase levels; Z20.822 Contact with and (suspected) exposure to COVID-19; R79.89 Other specified abnormal findings of blood chemistry; K74.60 Unspecified cirrhosis of liver; Z80.1 Family history of malignant neoplasm of trachea, bronchus and lung; Z80.3 Family history of malignant neoplasm of breast; Z80.42 Family history of malignant neoplasm of prostate; Z80.8 Family history of malignant neoplasm of other organs or systems; Z81.8 Family history of other mental and behavioral disorders; Z82.5 Family history of asthma and other chronic lower respiratory diseases; Z82.49 Family history of ischemic heart disease and other diseases of the circulatory system; Z82.3 Family history of stroke; Z82.62 Family history of osteoporosis; Z83.3 Family history of diabetes mellitus; Z95.5 Presence of coronary angioplasty implant and graft; Z82.0 Family history of epilepsy and other diseases of the nervous system; Z95.0 Presence of cardiac pacemaker
CPT/HCPCS: 36415; 71045; 71046; 71250; 74176; 78226; 80048; 80053; 80061; 80074; 80162; 80307; 81001; 82728; 83036; 83516; 83540; 83550; 83605; 83735; 83880; 84443; 84484; 85025; 85610; 85652; 85730; 86141; 86225; 86235; 86703; 86706; 87426; 87517; 87804; 93005; 93306; 94640; 96365; 96366; 96375; 97110; 97116; 97163; 97530; G0378; J0696; J1100; J2405

== ENCOUNTER 2023-05-06 04:14 | Inpatient (IN) | payer OTHER ==
[~2023-05-06] VITALS: Ht 182.9 cm; Wt 76.1 kg
[2023-05-06] VITALS (13 sets, daily range): BP systolic 96–127; BP diastolic 53–67; PULSE 50–107; RESP 14–40; TEMP 97.6–98.7; O2SAT 67–100
[~2023-05-06 04:14] MED LIST changes: -AMIO200T13 PO; +CHOL20007 PO; +EMPA1TAB PO; +METH4PAK PO; -METO25TA93 PO; +SACU1TAB PO; +SOTA80TA PO; +TRAM50TA2 PO
[2023-05-06 05:36] LABS: Basophils # (auto) 0 10 ^3/uL (0-0.2); Basophils % (auto) 0.3 % (0.0-2.0); Eosinophils # (auto) 0.1 10 ^3/uL (0-0.8); Eosinophils % (auto) 0.9 % (0.0-7.0); Hematocrit 43.3 % (41.0-53.0); Hemoglobin 14.7 g/dL (13.5-17.5); Lymphocytes % (auto) 13.2 % (10.0-50.0); Mean Corpuscular Hemoglobin 33.1 pg (28.0-32.0); Mean Corpuscular Hgb Conc. 33.9 g/dL (32.0-36.0); Mean Corpuscular Volume 97.5 fL (80.0-100.0); Monocytes # (auto) 0.5 10 ^3/uL (0-1.3); Monocytes % (auto) 6.9 % (0.0-12.0); Neutrophils # (auto) 5.8 10 ^3/uL (1.6-8.6); Neutrophils % (auto) 78.7 % (37.0-80.0); Nucleated Red Blood Cells % 0.3 %; Red Blood Cells 4.44 10^6/uL (4.5-5.90); Red Cell Distribution Width 17.7 % (11.8-14.3); White Blood Cell 7.4 10^3/uL (4.4-10.8)
[2023-05-06 05:54] LABS: Alanine Aminotransferase 69 U/L (7-40); Albumin 4.1 g/dL (3.2-4.8); Alkaline Phosphatase 81 U/L (46-116); Anion Gap 9 (5-15); Aspartate Aminotransferase 52 U/L (13-40); BUN/Creatinine Ratio 22.3 (10.0-20.0); Blood Urea Nitrogen 27 mg/dL (9-23); Calcium 9.7 mg/dL (8.7-10.4); Carbon Dioxide 28 mmol/L (20-30); Chloride 99 mmol/L (98-107); Glucose 117 mg/dL (74-106); INR 1.14 (0.9-1.15); Partial Thromboplastin Time 27.3 SEC (24.5-34.5); Potassium 3.6 mmol/L (3.5-5.1); Prothrombin Time 11.9 sec (9.3-11.8); Sodium 136 mmol/L (136-145)
[2023-05-06 05:55] LABS: Bilirubin, Total 1.6 mg/dL (0.2-1.0); Total Protein 7.6 g/dL (5.7-8.2)
[2023-05-06] MEDS: ALBUTEROL SULF 2.5 MG/0.5ML(0.5%) NEB SOLN NEB ONE (06:11)
[2023-05-06] MEDS: IPRATROPIUM BROM 0.5 MG/2.5ML INH SOL NEB ONE (06:11)
[2023-05-06] MEDS: FUROSEMIDE 20 MG/2 ML VIAL IV ONE (06:16)
[2023-05-06] MEDS: DexAMETHasone SOD PHOS 10MG/1ML VIAL INJ IV ONE (06:16)
[2023-05-06] MEDS: cefTRIAXone 2GM/50ML D5W 50 ML IV ONE (06:20)
[2023-05-06] MEDS: cefTRIAXone SOD 1,000 MG VL ONE (06:22)
[2023-05-06 06:23] LABS: Base Excess 3.1 mmol/L (-2.0-2.0)
[2023-05-06] MEDS: MAGNESIUM SULFATE 1GM/100ML 100 ML IV ONE (06:44)
[2023-05-06 07:04] LABS: COVID19 ANTIGEN SOFIA FIA NEGATIVE (NEGATIVE)
[2023-05-06 07:05] LABS: Rapid Influenza A Negative (Negative)
[2023-05-06 07:07] LABS: Rapid Influenza B Positive (Negative)
[2023-05-06] MEDS: AZITHROMYCIN 500MG/ 250ML 250 ML IV ONE (07:07)
[2023-05-06] MEDS ORDERED: TAMS0.4C36 PO (07:35)
[2023-05-06] MEDS ORDERED: MULT-1018 PO (07:35)
[2023-05-06] MEDS ORDERED: SOTA80TA PO (07:35)
[2023-05-06] MEDS ORDERED: AMLO1TAB22 PO (07:35)
[2023-05-06] MEDS ORDERED: MID10T PO (07:35)
[2023-05-06] MEDS ORDERED: PRE1T PO (07:35)
[2023-05-06] MEDS ORDERED: METH2.5T PO (07:37)
[2023-05-06] MEDS: ACETAMINOPHEN 325 MG TAB PO ONE (07:57)
[2023-05-06] MEDS: cefTRIAXone 1GM/50ML D5W 50 ML IV SCH (09:00)
[2023-05-06] MEDS ORDERED: MORPHINE SULFATE INJ 2 MG/ml SYRG IV PRN (09:00)
[2023-05-06] MEDS ORDERED: NITROGLYCERIN 0.4 MG SL TAB SL PRN (09:00)
[2023-05-06 09:30] LABS: Triglycerides 142 mg/dL (< 150)
[2023-05-06 09:31] LABS: LDL Cholesterol 78 mg/dL (< 100)
[2023-05-06 09:32] LABS: Cholesterol 122 mg/dL (< 200); HDL Cholesterol 23 mg/dL (40-59)
[2023-05-06 09:45] LABS: Hepatitis B Surface Antigen Negative (Negative)
[2023-05-06] MEDS ORDERED: ENOXAPARIN SOD 40 MG/0.4 ML SYRINGE SC SCH (10:00)
[2023-05-06] MEDS ORDERED: AZITHROMYCIN 500MG/ 250ML 250 ML IV SCH (10:00)
[2023-05-06] MEDS: SACUBITRIL-VALSARTAN 24mg/26mg TAB PO SCH (10:00)
[2023-05-06] MEDS: predniSONE 1 MG TAB PO SCH (10:00)
[2023-05-06] MEDS: FUROSEMIDE 40 MG TAB PO SCH (10:00)
[2023-05-06] MEDS ORDERED: methylPREDNISolone SOD SUCC 40 MG/ML VL IV SCH (10:00)
[2023-05-06 10:06] LABS: Hepatitis A Ab IgM Negative; Hepatitis B Core IgM Positive
[2023-05-06 10:07] LABS: Hepatitis C Antibody Negative (Negative)
[2023-05-06] MEDS: DOXYCYCLINE 100MG/250ML 250 ML IV SCH (10:44)
[2023-05-06] MEDS: TAMSULOSIN HYDROCHLORIDE 0.4 MG CAP PO SCH (10:44)
[2023-05-06] MEDS: SOTALOL HCL 80 MG TAB PO SCH (10:45)
[2023-05-06] MEDS: APIXABAN 5 MG TAB PO SCH (10:45)
[2023-05-06] MEDS: MULTIPLE VITAMIN TAB PO SCH (10:46)
[2023-05-06] MEDS: EMPAGLIFLOZIN 10 MG TAB PO SCH (10:46)
[2023-05-06] MEDS: CHOLECALCIFEROL (VITD3) 1,000UNIT=25mCg TAB PO SCH (10:46)
[2023-05-06] MEDS: ALBUTEROL SULF 2.5 MG/0.5ML(0.5%) NEB SOLN NEB SCH (11:00)
[2023-05-06] MEDS: IPRATROPIUM BROM 0.5 MG/2.5ML INH SOL NEB SCH (11:00)
[2023-05-06] MEDS: MIDODRINE HCL 10 MG TAB GT SCH (14:20)
[2023-05-06] MEDS: METHOTREXATE 2.5 MG TAB PO SCH (14:48)
[2023-05-07] VITALS (23 sets, daily range): BP systolic 88–98; BP diastolic 51–77; PULSE 54–85; RESP 14–20; TEMP 97.5–98.5; O2SAT 93–100
[2023-05-07 06:55] LABS: Basophils # (auto) 0 10 ^3/uL (0-0.2); Eosinophils # (auto) 0 10 ^3/uL (0-0.8); Eosinophils % (auto) 0.1 % (0.0-7.0); Hematocrit 39.4 % (41.0-53.0); Hemoglobin 13.4 g/dL (13.5-17.5); Lymphocytes # (auto) 0.6 10 ^3/uL (0.4-5.4); Lymphocytes % (auto) 8.2 % (10.0-50.0); Mean Corpuscular Hemoglobin 32.9 pg (28.0-32.0); Mean Corpuscular Volume 96.8 fL (80.0-100.0); Monocytes # (auto) 0.7 10 ^3/uL (0-1.3); Neutrophils # (auto) 6.3 10 ^3/uL (1.6-8.6); Neutrophils % (auto) 82.7 % (37.0-80.0); Nucleated Red Blood Cells % 0.2 %; Red Blood Cells 4.07 10^6/uL (4.5-5.90); Red Cell Distribution Width 17.9 % (11.8-14.3); White Blood Cell 7.6 10^3/uL (4.4-10.8)
[2023-05-07 07:19] LABS: Alanine Aminotransferase 50 U/L (7-40); Albumin 3.5 g/dL (3.2-4.8); Alkaline Phosphatase 72 U/L (46-116); Anion Gap 8 (5-15); Aspartate Aminotransferase 47 U/L (13-40); BUN/Creatinine Ratio 27.7 (10.0-20.0); Bilirubin, Total 0.8 mg/dL (0.2-1.0); Blood Urea Nitrogen 31 mg/dL (9-23); Carbon Dioxide 27 mmol/L (20-30); Chloride 100 mmol/L (98-107); Glucose 123 mg/dL (74-106); Potassium 3.7 mmol/L (3.5-5.1); Sodium 135 mmol/L (136-145); Total Protein 6.4 g/dL (5.7-8.2)
[2023-05-07 07:32] LABS: Lactic Acid w/Reflex 2.1 mmol/L (0.4-2.0)
[2023-05-07] MEDS: OSELTAMIVIR 75 MG CAP PO SCH (13:27)
[2023-05-07] MEDS: ACETAMINOPHEN 325 MG TAB PO PRN (13:33)
[2023-05-07] MEDS ORDERED: FLUT50SP INH (13:52)
[2023-05-07] MEDS ORDERED: SIMV40TA18 PO (13:52)
[2023-05-07] MEDS ORDERED: FOLI-119 PO (13:52)
[2023-05-07] MEDS ORDERED: BUDE0.5S NEB (13:52)
[2023-05-08] VITALS (43 sets, daily range): BP systolic 67–130; BP diastolic 36–79; PULSE 49–161; RESP 16–46; TEMP 98.3–100.1; O2SAT 57–100
[2023-05-08 06:43] LABS: Basophils # (auto) 0 10 ^3/uL (0-0.2); Basophils % (auto) 0.2 % (0.0-2.0); Eosinophils # (auto) 0.1 10 ^3/uL (0-0.8); Eosinophils % (auto) 1.5 % (0.0-7.0); Hematocrit 45.5 % (41.0-53.0); Hemoglobin 14.8 g/dL (13.5-17.5); Lymphocytes % (auto) 12.6 % (10.0-50.0); Mean Corpuscular Hemoglobin 32.2 pg (28.0-32.0); Mean Corpuscular Hgb Conc. 32.6 g/dL (32.0-36.0); Mean Corpuscular Volume 98.9 fL (80.0-100.0); Monocytes # (auto) 0.5 10 ^3/uL (0-1.3); Monocytes % (auto) 5.7 % (0.0-12.0); Neutrophils # (auto) 6.7 10 ^3/uL (1.6-8.6); Nucleated Red Blood Cells % 0.2 %; Red Cell Distribution Width 18.1 % (11.8-14.3); White Blood Cell 8.3 10^3/uL (4.4-10.8)
[2023-05-08 10:16] LABS: Alanine Aminotransferase 55 U/L (7-40); Alkaline Phosphatase 79 U/L (46-116); Anion Gap 5 (5-15); Aspartate Aminotransferase 56 U/L (13-40); Blood Urea Nitrogen 27 mg/dL (9-23); Calcium 9.2 mg/dL (8.5-10.1); Carbon Dioxide 30 mmol/L (20-30); Chloride 100 mmol/L (98-107); Glucose 83 mg/dL (74-106); Potassium 3.7 mmol/L (3.5-5.1); Sodium 135 mmol/L (136-145)
[2023-05-08 10:17] LABS: Albumin 3.7 g/dL (3.2-4.8); Bilirubin, Total 1.1 mg/dL (0.2-1.0); Total Protein 6.7 g/dL (5.7-8.2)
[2023-05-08] MEDS ORDERED: FUROSEMIDE 40 MG/4 ML VIAL IV ONE ×2 (11:15→17:00)
[2023-05-08] MEDS: NOREPINEPHRINE 8 MG/250ML KIT 250 ML IV SCH (16:03)
[2023-05-08] MEDS: AMIODARONE 450mg/250ml AE 250 ML IV ONE ×2 (16:25→21:22)
[2023-05-08] MEDS: AMIODARONE BOLUS KIT 0 ML IV ONE (16:25)
[2023-05-08] MEDS: AMIODARONE 450mg/250ml AE 250 ML IV SCH ×2 (16:30→21:00)
[2023-05-08] MEDS ORDERED: FUROSEMIDE 20 MG/2 ML VIAL IV ONE ×3 (18:30→22:30)
[2023-05-08] MEDS: DOBUTamine 1000MCG/ML 250 ML IV SCH (19:25)
[2023-05-08 19:43] LABS: Base Excess 1.4 mmol/L (-2.0-2.0)
[2023-05-08] MEDS ORDERED: ONDANSETRON HCL 4 MG/2 ML VIAL IV PRN (21:00)
[2023-05-08] MEDS: FUROSEMIDE 20 MG/2 ML VIAL IV ONE (21:03)
[2023-05-08] MEDS: AMIODARONE BOLUS KIT 100 ML IV ONE (21:18)
[2023-05-09] VITALS (108 sets, daily range): BP systolic 73–157; BP diastolic 33–131; PULSE 60–110; RESP 10–51; TEMP 97.5–98.6; O2SAT 86–100
[2023-05-09] MEDS ORDERED: FUROSEMIDE 20 MG/2 ML VIAL IV ONE (01:00)
[2023-05-09] MEDS: FUROSEMIDE 20 MG/2 ML VIAL IV ONE (01:27)
[2023-05-09] MEDS: IBUPROFEN 600 MG TAB PO ONE (02:06)
[2023-05-09 06:22] LABS: Basophils # (auto) 0 10 ^3/uL (0-0.2); Basophils % (auto) 0.2 % (0.0-2.0); Eosinophils # (auto) 0.2 10 ^3/uL (0-0.8); Eosinophils % (auto) 1.7 % (0.0-7.0); Hematocrit 41.7 % (41.0-53.0); Hemoglobin 13.8 g/dL (13.5-17.5); Lymphocytes % (auto) 8.8 % (10.0-50.0); Mean Corpuscular Hemoglobin 31.9 pg (28.0-32.0); Mean Corpuscular Hgb Conc. 33.2 g/dL (32.0-36.0); Mean Corpuscular Volume 96.3 fL (80.0-100.0); Monocytes # (auto) 0.6 10 ^3/uL (0-1.3); Monocytes % (auto) 5.4 % (0.0-12.0); Neutrophils # (auto) 9.6 10 ^3/uL (1.6-8.6); Neutrophils % (auto) 83.9 % (37.0-80.0); Nucleated Red Blood Cells % 0.1 %; Red Blood Cells 4.33 10^6/uL (4.5-5.90); Red Cell Distribution Width 17.5 % (11.8-14.3); White Blood Cell 11.4 10^3/uL (4.4-10.8)
[2023-05-09 06:38] LABS: INR 1.26 (0.9-1.15); Partial Thromboplastin Time 34.9 SEC (24.5-34.5)
[2023-05-09 06:39] LABS: Alanine Aminotransferase 47 U/L (7-40); Albumin 3.5 g/dL (3.2-4.8); Alkaline Phosphatase 71 U/L (46-116); Anion Gap 8 (5-15); Aspartate Aminotransferase 46 U/L (13-40); BUN/Creatinine Ratio 23.8 (10.0-20.0); Blood Urea Nitrogen 31 mg/dL (9-23); Calcium 9.2 mg/dL (8.7-10.4); Carbon Dioxide 29 mmol/L (20-30); Chloride 99 mmol/L (98-107); Glucose 141 mg/dL (74-106); Magnesium 2.2 mg/dL (1.6-2.6); Potassium 3.2 mmol/L (3.5-5.1); Sodium 136 mmol/L (136-145)
[2023-05-09 06:40] LABS: Bilirubin, Total 1.4 mg/dL (0.2-1.0); Total Protein 6.7 g/dL (5.7-8.2)
[2023-05-09] MEDS: AMIODARONE 450mg/250ml AE 250 ML IV SCH (08:51)
[2023-05-09] MEDS: LIDOCAINE 1% (LOCAL ANESTH.) PF 5ml SDV ID ONE (09:37)
[2023-05-09] MEDS: POTASSIUM CHL 20MEQ/100ML 100 ML IV SCH (09:39)
[2023-05-09] MEDS: FUROSEMIDE 40 MG/4 ML VIAL IV SCH (09:40)
[2023-05-09] MEDS: predniSONE 5 MG TAB PO SCH (09:43)
[2023-05-09] MEDS: SODIUM CHLOR 0.9% PF (SALINE LOCK) 10ML VIAL/SYR IV SCH (09:46)
[2023-05-09] MEDS: ALBUTEROL SULF 2.5 MG/0.5ML(0.5%) NEB SOLN NEB PRN (18:31)
[2023-05-09] MEDS: AMIODARONE HCL 200 MG TAB PO SCH (21:09)
[2023-05-10] VITALS (62 sets, daily range): BP systolic 86–131; BP diastolic 45–105; PULSE 60–113; RESP 16–43; TEMP 97.4–98.6; O2SAT 88–100
[2023-05-10 05:14] LABS: Basophils # (auto) 0 10 ^3/uL (0-0.2); Basophils % (auto) 0.3 % (0.0-2.0); Eosinophils # (auto) 0.3 10 ^3/uL (0-0.8); Eosinophils % (auto) 3.1 % (0.0-7.0); Hematocrit 40.3 % (41.0-53.0); Hemoglobin 13.7 g/dL (13.5-17.5); Lymphocytes # (auto) 0.7 10 ^3/uL (0.4-5.4); Lymphocytes % (auto) 7.6 % (10.0-50.0); Mean Corpuscular Hemoglobin 32.4 pg (28.0-32.0); Mean Corpuscular Hgb Conc. 33.9 g/dL (32.0-36.0); Mean Corpuscular Volume 95.5 fL (80.0-100.0); Monocytes # (auto) 0.5 10 ^3/uL (0-1.3); Monocytes % (auto) 5.2 % (0.0-12.0); Neutrophils # (auto) 8.1 10 ^3/uL (1.6-8.6); Neutrophils % (auto) 83.8 % (37.0-80.0); Red Blood Cells 4.22 10^6/uL (4.5-5.90); Red Cell Distribution Width 17.4 % (11.8-14.3); White Blood Cell 9.7 10^3/uL (4.4-10.8)
[2023-05-10 05:27] LABS: Anion Gap 5 (5-15); Carbon Dioxide 31 mmol/L (20-30); Chloride 102 mmol/L (98-107); Sodium 138 mmol/L (136-145)
[2023-05-10 05:29] LABS: Calcium 9.4 mg/dL (8.5-10.1)
[2023-05-10 05:33] LABS: BUN/Creatinine Ratio 26.8 (10.0-20.0); Blood Urea Nitrogen 26 mg/dL (9-23); Glucose 98 mg/dL (74-106)
[2023-05-10] MEDS: OSELTAMIVIR 75 MG CAP PO SCH (21:23)
[2023-05-11] VITALS (21 sets, daily range): BP systolic 94–129; BP diastolic 50–74; PULSE 60–84; RESP 16–25; TEMP 98–98.6; O2SAT 92–100
[2023-05-11 05:01] LABS: Basophils # (auto) 0 10 ^3/uL (0-0.2); Basophils % (auto) 0.3 % (0.0-2.0); Eosinophils # (auto) 0.3 10 ^3/uL (0-0.8); Eosinophils % (auto) 3.3 % (0.0-7.0); Hematocrit 37.4 % (41.0-53.0); Hemoglobin 12.8 g/dL (13.5-17.5); Lymphocytes % (auto) 11.9 % (10.0-50.0); Mean Corpuscular Hgb Conc. 34.3 g/dL (32.0-36.0); Mean Corpuscular Volume 96.2 fL (80.0-100.0); Monocytes # (auto) 0.6 10 ^3/uL (0-1.3); Monocytes % (auto) 6.8 % (0.0-12.0); Neutrophils # (auto) 6.7 10 ^3/uL (1.6-8.6); Neutrophils % (auto) 77.7 % (37.0-80.0); Nucleated Red Blood Cells % 0.2 %; Red Blood Cells 3.89 10^6/uL (4.5-5.90); Red Cell Distribution Width 17.7 % (11.8-14.3); White Blood Cell 8.6 10^3/uL (4.4-10.8)
[2023-05-11 05:11] LABS: Anion Gap 7 (5-15); Carbon Dioxide 28 mmol/L (20-30); Chloride 103 mmol/L (98-107); Potassium 3.5 mmol/L (3.5-5.1); Sodium 138 mmol/L (136-145)
[2023-05-11 05:12] LABS: Calcium 9.2 mg/dL (8.7-10.4)
[2023-05-11 05:17] LABS: BUN/Creatinine Ratio 26.7 (10.0-20.0); Blood Urea Nitrogen 23 mg/dL (9-23); Glucose 85 mg/dL (74-106)
[2023-05-11] MEDS ORDERED: DOCUSATE SOD 100 MG CAP PO PRN (09:30)
[2023-05-11] MEDS: DOCUSATE SOD 100 MG CAP PO ONE (10:01)
[2023-05-11] MEDS: LEVALBUTEROL HCL 1.25 MG/3 ML NEB NEB PRN (14:22)
[2023-05-12] VITALS (23 sets, daily range): BP systolic 107–164; BP diastolic 56–102; PULSE 54–72; RESP 16–25; TEMP 97.2–98.6; O2SAT 91–100
[2023-05-12 05:14] LABS: Alanine Aminotransferase 32 U/L (7-40); Albumin 3.3 g/dL (3.2-4.8); Alkaline Phosphatase 59 U/L (46-116); Anion Gap 8 (5-15); Aspartate Aminotransferase 39 U/L (13-40); BUN/Creatinine Ratio 23.2 (10.0-20.0); Bilirubin, Total 1.5 mg/dL (0.2-1.0); Blood Urea Nitrogen 22 mg/dL (9-23); Calcium 9.3 mg/dL (8.7-10.4); Carbon Dioxide 27 mmol/L (20-30); Chloride 102 mmol/L (98-107); Glucose 90 mg/dL (74-106); Magnesium 2.1 mg/dL (1.6-2.6); Potassium 3.5 mmol/L (3.5-5.1); Sodium 137 mmol/L (136-145); Total Protein 6.5 g/dL (5.7-8.2)
[2023-05-12 05:19] LABS: Basophils # (auto) 0 10 ^3/uL (0-0.2); Basophils % (auto) 0.4 % (0.0-2.0); Eosinophils # (auto) 0.2 10 ^3/uL (0-0.8); Eosinophils % (auto) 3.1 % (0.0-7.0); Hematocrit 37.1 % (41.0-53.0); Hemoglobin 12.5 g/dL (13.5-17.5); Mean Corpuscular Hemoglobin 32.7 pg (28.0-32.0); Mean Corpuscular Hgb Conc. 33.8 g/dL (32.0-36.0); Mean Corpuscular Volume 96.6 fL (80.0-100.0); Monocytes # (auto) 0.8 10 ^3/uL (0-1.3); Monocytes % (auto) 10.4 % (0.0-12.0); Neutrophils # (auto) 5.8 10 ^3/uL (1.6-8.6); Neutrophils % (auto) 73.1 % (37.0-80.0); Nucleated Red Blood Cells % 0.2 %; Red Blood Cells 3.84 10^6/uL (4.5-5.90); Red Cell Distribution Width 17.3 % (11.8-14.3); White Blood Cell 7.9 10^3/uL (4.4-10.8)
[2023-05-13] VITALS (20 sets, daily range): BP systolic 92–110; BP diastolic 54–72; PULSE 56–104; RESP 16–20; TEMP 97.9–99; O2SAT 91–100
[2023-05-13 05:26] LABS: Basophils # (auto) 0 10 ^3/uL (0-0.2); Basophils % (auto) 0.4 % (0.0-2.0); Eosinophils # (auto) 0.2 10 ^3/uL (0-0.8); Eosinophils % (auto) 2.2 % (0.0-7.0); Hematocrit 39.4 % (41.0-53.0); Hemoglobin 13.2 g/dL (13.5-17.5); Lymphocytes # (auto) 1.3 10 ^3/uL (0.4-5.4); Lymphocytes % (auto) 13.9 % (10.0-50.0); Mean Corpuscular Hemoglobin 32.5 pg (28.0-32.0); Mean Corpuscular Hgb Conc. 33.5 g/dL (32.0-36.0); Mean Corpuscular Volume 97.1 fL (80.0-100.0); Monocytes # (auto) 0.8 10 ^3/uL (0-1.3); Monocytes % (auto) 9.2 % (0.0-12.0); Neutrophils # (auto) 6.8 10 ^3/uL (1.6-8.6); Neutrophils % (auto) 74.3 % (37.0-80.0); Nucleated Red Blood Cells % 0.3 %; Red Blood Cells 4.06 10^6/uL (4.5-5.90); Red Cell Distribution Width 17.5 % (11.8-14.3); White Blood Cell 9.2 10^3/uL (4.4-10.8)
[2023-05-13 05:31] LABS: Calcium 9.5 mg/dL (8.7-10.4); Chloride 100 mmol/L (98-107); Potassium 3.5 mmol/L (3.5-5.1); Sodium 135 mmol/L (136-145)
[2023-05-13 05:32] LABS: Anion Gap 8 (5-15); Carbon Dioxide 27 mmol/L (20-30)
[2023-05-13 05:37] LABS: Blood Urea Nitrogen 22 mg/dL (9-23); Glucose 111 mg/dL (74-106)
[2023-05-13] MEDS ORDERED: FURO40TA4 PO (10:32)
[2023-05-13] MEDS: MIDODRINE HCL 10 MG TAB PO SCH (14:12)
[2023-05-14] VITALS (18 sets, daily range): BP systolic 82–106; BP diastolic 41–66; PULSE 55–87; RESP 14–19; TEMP 97.7–98.5; O2SAT 91–99
[2023-05-14] MEDS: FUROSEMIDE 20 MG/2 ML VIAL IV ONE (00:02)
[2023-05-14 05:36] LABS: Anion Gap 6 (5-15); Calcium 9.5 mg/dL (8.7-10.4); Carbon Dioxide 31 mmol/L (20-30); Chloride 100 mmol/L (98-107); Potassium 3.7 mmol/L (3.5-5.1); Sodium 137 mmol/L (136-145)
[2023-05-14 05:37] LABS: Basophils # (auto) 0 10 ^3/uL (0-0.2); Basophils % (auto) 0.5 % (0.0-2.0); Eosinophils # (auto) 0.2 10 ^3/uL (0-0.8); Eosinophils % (auto) 1.8 % (0.0-7.0); Hematocrit 37.8 % (41.0-53.0); Hemoglobin 12.8 g/dL (13.5-17.5); Lymphocytes # (auto) 1.4 10 ^3/uL (0.4-5.4); Lymphocytes % (auto) 14.2 % (10.0-50.0); Mean Corpuscular Hemoglobin 32.5 pg (28.0-32.0); Mean Corpuscular Hgb Conc. 33.9 g/dL (32.0-36.0); Mean Corpuscular Volume 95.7 fL (80.0-100.0); Monocytes # (auto) 1.2 10 ^3/uL (0-1.3); Monocytes % (auto) 12.5 % (0.0-12.0); Neutrophils # (auto) 6.9 10 ^3/uL (1.6-8.6); Nucleated Red Blood Cells % 0.2 %; Red Blood Cells 3.95 10^6/uL (4.5-5.90); Red Cell Distribution Width 17.3 % (11.8-14.3); White Blood Cell 9.8 10^3/uL (4.4-10.8)
[2023-05-14 05:42] LABS: BUN/Creatinine Ratio 22.1 (10.0-20.0); Blood Urea Nitrogen 25 mg/dL (9-23); Glucose 94 mg/dL (74-106)
== END 2023-05-14 20:45 | disposition home health service (06) | DRG 871 ==
LOC: EDUNIT# 04:14 → ER 04:14 → EDBD 04:14 → TELE 09:00 → TELE-CENTR 17:24 → DOU IN ICU 05-08 16:00 → ICU CENTRL 05-08 21:23 → TELE-CENTR 05-10 13:47
PROVIDERS: ADMIT Internal Medicine Pulmonary Disease; ATTEND Internal Medicine Pulmonary Disease
PROC: 02HV33Z Insertion of Infusion Device into Superior Vena Cava, Percutaneous Approach (ICD-10-PCS; 2023-05-09)
PROC: B548ZZA Ultrasonography of Superior Vena Cava, Guidance (ICD-10-PCS; 2023-05-09)
PROC: 5A09357 Assistance with Respiratory Ventilation, Less than 24 Consecutive Hours, Continuous Positive Airway Pressure (ICD-10-PCS; principal; 2023-05-10)
DX: A41.89 Other specified sepsis (principal); I21.A1 Myocardial infarction type 2; R57.0 Cardiogenic shock; J12.9 Viral pneumonia, unspecified; I50.43 Acute on chronic combined systolic (congestive) and diastolic (congestive) heart failure; N17.0 Acute kidney failure with tubular necrosis; J96.01 Acute respiratory failure with hypoxia; J44.1 Chronic obstructive pulmonary disease with (acute) exacerbation; I48.20 Chronic atrial fibrillation, unspecified; J10.1 Influenza due to other identified influenza virus with other respiratory manifestations; I11.0 Hypertensive heart disease with heart failure; M06.9 Rheumatoid arthritis, unspecified; R74.01 Elevation of levels of liver transaminase levels; I25.5 Ischemic cardiomyopathy; I25.10 Atherosclerotic heart disease of native coronary artery without angina pectoris; G47.33 Obstructive sleep apnea (adult) (pediatric); J44.9 Chronic obstructive pulmonary disease, unspecified; I48.0 Paroxysmal atrial fibrillation; I34.0 Nonrheumatic mitral (valve) insufficiency; K59.00 Constipation, unspecified; Z79.01 Long term (current) use of anticoagulants; Z99.81 Dependence on supplemental oxygen; Z95.810 Presence of automatic (implantable) cardiac defibrillator; Z80.0 Family history of malignant neoplasm of digestive organs; Z80.1 Family history of malignant neoplasm of trachea, bronchus and lung; Z80.3 Family history of malignant neoplasm of breast; Z80.42 Family history of malignant neoplasm of prostate; Z80.8 Family history of malignant neoplasm of other organs or systems; Z81.8 Family history of other mental and behavioral disorders; Z82.0 Family history of epilepsy and other diseases of the nervous system; Z82.3 Family history of stroke; Z82.49 Family history of ischemic heart disease and other diseases of the circulatory system; Z82.5 Family history of asthma and other chronic lower respiratory diseases; Z82.62 Family history of osteoporosis; Z83.3 Family history of diabetes mellitus; Z87.891 Personal history of nicotine dependence
CPT/HCPCS: 36415; 36569; 36600; 71045; 71275; 76705; 80048; 80053; 80061; 80074; 82805; 83605; 83735; 83880; 84443; 84484; 85025; 85379; 85610; 85730; 87040; 87081; 87426; 87804; 93005; 93306; 94640; 94660; 96365; 96366; 96368; 96375; 97116; 97163; 97530; 99291; G0378; J0696; J1100; J3480; J3490